=== PATIENT | female | born 1995 ===

== ENCOUNTER 2023-10-14 19:51 | Emergency (ER) | payer OTHER ==
[2023-10-14] MEDS: QUEtiapine 100 MG Tab PO SCH (23:07)
[2023-10-14] MEDS: LORazepam 2 MG/ML SDV IM ONE (23:11)
[2023-10-14] MEDS: QUEtiapine 100 MG Tab ONE (23:17)
[2023-10-14 23:49] LABS: APPEARANCE,URINE SLIGHTLY CLOUDY (CLEAR); BILIRUBIN,URINE SMALL (NEGATIVE); COLOR,URINE YELLOW (YELLOW); GLUCOSE,URINE NEGATIVE (NEGATIVE); KETONES,URINE 15 mg/dL (NEGATIVE); LEUKOCYTE ESTERASE,URINE TRACE (NEGATIVE); NITRITE,URINE NEGATIVE (NEGATIVE); OCCULT BLOOD,URINE TRACE-INTACT (NEGATIVE); PROTEIN,URINE 30 mg/dL (NEGATIVE); UROBILINOGEN,URINE 0.2 EU/dL (0.2-1.0)
[2023-10-14 23:58] LABS: EPITHELIAL CELLS,URINE FEW; WBC,URINE 20-30 (0-5)
[2023-10-14 23:59] LABS: AMORPHOUS SEDIMENT,URINE NOT SEEN; BACTERIA,URINE MANY; MUCUS,URINE MODERATE
[2023-10-15] MEDS: Sulfamethoxazole/Trimethoprim 800-160 MG Tab PO ONE (00:09)
== END 2023-10-15 00:30 ==
LOC: JP.ED 19:51
DX: F15.13 Other stimulant abuse with withdrawal (principal); N30.01 Acute cystitis with hematuria; F17.210 Nicotine dependence, cigarettes, uncomplicated; Z79.899 Other long term (current) drug therapy
CPT/HCPCS: 81001; 87086; 87088; 87186; 96372; 99284; A9270; J2060